=== PATIENT | male | born 1985 | race Caucasian/White ===

== ENCOUNTER 2017-08-21 10:28 | Emergency (ER) | payer BC, OTHER ==
--- NOTE | 2017-08-21 11:21 | EDM.PDOC ---
ED HPI GENERAL MEDICAL PROBLEM - General Chief Complaint: General Stated Complaint: PAIN Time Seen by Provider: 08/21/17 10:30 Source of Information: Reports: Patient History Limitations: Reports: No Limitations - History of Present Illness INITIAL COMMENTS - FREE TEXT/NARRATIVE: HISTORY AND PHYSICAL: History of present illness: Patient is a 32-year-old male who presents to the emergency room with complaints of rectal pain 1 day. He denies any fever, chills, chest pain, shortness of breath or cough. Denies any abdominal pain, nausea, vomiting, diarrhea or constipation. Denies any blood in his stools or difficulty/changes in his bowel movements. Denies any dysuria, penile drainage or hernias. No previous history of hemorrhoids. Review of systems: As per history of present illness and below otherwise all systems reviewed and negative. Past medical history: As per history of present illness and as reviewed below otherwise noncontributory. Surgical history: As per history of present illness and as reviewed below otherwise noncontributory. Social history: No reported history of drug or alcohol abuse. Family history: As per history of present illness and as reviewed below otherwise noncontributory. Physical exam: General: Well-developed and well-nourished 32-year-old male. Alert and oriented. Nontoxic appearing and in no acute distress. HEENT: Atraumatic, normocephalic, pupils equal and reactive bilaterally, negative for conjunctival pallor or scleral icterus, mucous membranes moist, throat clear, neck supple, nontender, trachea midline. No drooling or trismus noted. No meningeal signs Lungs: Clear to auscultation, breath sounds equal bilaterally, chest nontender. Heart: S1S2, regular rate and rhythm without overt murmur Abdomen: Soft, nondistended, nontender. Negative for masses or hepatosplenomegaly. Negative for costovertebral tenderness. Pelvis: Stable nontender. No sign of inguinal hernias. Genitourinary: Deferred. Rectal: This was done with a partner at the bedside. Nickel-sized hemorrhoid noted to the 3 o'clock position. Tender with palpation. No bleeding noted. Non- fluctuant. No surrounding erythema noted. Internal exam: good rectal toe, no internal hemorrhiods palpated. Pt tolerated well. Skin: See rectal exam. Otherwise skin is intact, warm, dry. No lesions or rashes noted. Extremities: Atraumatic, moves all extremities per self. Neurovascular unremarkable. Neuro: Awake, alert, oriented. Cranial nerves II through XII unremarkable. Cerebellum unremarkable. Motor and sensory unremarkable throughout. Exam nonfocal. Notes: Rectal exam shows an external hemorrhoid does not appear to cellulitic or any form of abscess. Anusol HC suppos prescribed with supportive care measures. We discussed appropriate follow-up with primary care or Gen. surgery for further evaluation and management. Signs and symptoms that would prompt him to come back to the emergency room were reviewed. He voices understanding and is agreeable to plan of care. He denies any further questions at this time. Diagnostics: [] Therapeutics: [] Impression: External Hemorrhoid Plan: 1. Please increase your fiber and have adequate fluid intake 2. May want to consider a tool softener to avoid straining with her bowel movements. 3. Gentle cleaning following bowel movements. He may use the Anusol suppositories 2-4 times daily as needed. 4. As we discussed please follow-up with the general surgeon for further management within the next 1-2 weeks, or sooner as needed. Return to the ED as needed and as discussed. Definitive disposition and diagnosis as appropriate pending reevaluation and review of above. Onset: Today Duration: Day(s): Associated Symptoms: Reports: No Other Symptoms rectum Pain Score (Numeric/FACES): 4 - Related Data Allergies Allergy/AdvReac Type Severity Reaction Status Date / Time No Known Allergies Allergy Verified 08/21/17 10:47 Home Meds: Home Meds . [No Known Home Meds] 08/21/17 [History] Past Medical History - Past Health History Medical/Surgical History: Denies Medical/Surgical History - Infectious Disease History Infectious Disease History: Reports: Chicken Pox Social & Family History - Family History Family Medical History: Noncontributory - Tobacco Use Smoking Status *Q: Current Every Day Smoker Years of Tobacco use: 10 Packs/Tins Daily: 0.5 - Caffeine Use Caffeine Use: Reports: Coffee - Recreational Drug Use Recreational Drug Use: No ED ROS GENERAL - Review of Systems Review Of Systems: ROS reveals no pertinent complaints other than HPI. ED EXAM, GENERAL - Physical Exam Exam: See Below (See dictation) Course - Vital Signs Last Recorded V/S: Last Vital Signs Temp 97.8 F 08/21/17 10:48 Pulse 86 08/21/17 10:48 Resp 18 08/21/17 10:48 BP 156/84 H 08/21/17 10:48 Pulse Ox 95 08/21/17 10:48 Departure - Departure Time of Disposition: 11:21 Disposition: Home, Self-Care 01 Clinical Impression: External hemorrhoid - Discharge Information Instructions: Hemorrhoids, [id number] Referrals: PCP,None [Primary Care Provider] - Forms: ED Department Discharge Additional Instructions: The following information is given to patients seen in the emergency department who are being discharged to home. This information is to outline your options for follow-up care. We provide all patients seen in our emergency department with a follow-up referral. The need for follow-up, as well as the timing and circumstances, are variable depending upon the specifics of your emergency department visit. If you don't have a primary care physician on staff, we will provide you with a referral. We always advise you to contact your personal physician following an emergency department visit to inform them of the circumstance of the visit and for follow-up with them and/or the need for any referrals to a consulting specialist. The emergency department will also refer you to a specialist when appropriate. This referral assures that you have the opportunity for follow-up care with a specialist. All of these measure are taken in an effort to provide you with optimal care, which includes your follow-up. Under all circumstances we always encourage you to contact your private physician who remains a resource for coordinating your care. When calling for follow-up care, please make the office aware that this follow-up is from your recent emergency room visit. If for any reason you are refused follow-up, please contact the [facility] Emergency Department at and asked to speak to the emergency department charge nurse. [facility] Specialty Care - General Surgery Professional Building [address] [place] [address], [address] [place] [address] 1. Please increase your fiber and have adequate fluid intake. 2. May want to consider a stool softener to avoid straining with your bowel movements. 3. Gentle cleaning following bowel movements. You may use the Anusol suppositories 2-4 times daily as needed. 4. As we discussed please follow-up with the general surgeon for further management within the next 1-2 weeks, or sooner as needed. Return to the ED as needed and as discussed.
== END 2017-08-21 11:30 | disposition home or self-care (01) ==
LOC: MW.ED 10:28
DX: K64.4 Residual hemorrhoidal skin tags (principal); F17.210 Nicotine dependence, cigarettes, uncomplicated
CPT/HCPCS: 99283